=== PATIENT | female | born 1995 | race Caucasian/White ===

== ENCOUNTER 2021-07-19 09:37 | Outpatient (RCR) | payer OTHER | END 2021-07-30 | disposition home or self-care (01) | LOC: WSOH | DX: S16.1XXA Strain of muscle, fascia and tendon at neck level, initial encounter (principal); I73.00 Raynaud's syndrome without gangrene; T78.40XA Allergy, unspecified, initial encounter; Y99.0 Civilian activity done for income or pay ==